=== PATIENT | male | born 1990 | race Two or more races ===

== ENCOUNTER 2020-06-20 18:12 | Emergency (ER) | payer SELFPAY ==
[~2020-06-20] VITALS: Ht 165.1 cm; Wt 68.0 kg
--- NOTE | 2020-06-20 18:20 | NUR ---
[id number], and tanmay, suicidal ideation, "i want to hurt myself" LFA lac using, TANMAY will put him on [id number]. On room air, breathing evenly and unlabored. sitter at bedside for constant monitoring. WIll continue to monitor accordingly.
--- NOTE | 2020-06-20 18:24 | NUR ---
called security for wanding
--- NOTE | 2020-06-20 18:24 | NUR ---
security at bedside for wanding
[2020-06-20] MEDS ORDERED: TDAP [DIPH/PERTUSSIS/TET] 0.5 ML VIAL IM ONE ×2 (18:30→18:31)
[2020-06-20 18:53] LABS: BASOPHILS % (AUTO) 0.6 % (0.0-2.0); EOSINOPHILS % (AUTO) 0.2 % (0.0-6.0); HEMATOCRIT 44 % (39-51); HEMOGLOBIN 15.2 g/dL (13.5-17.5); LYMPHOCYTES # (AUTO) 1.6 /CMM (0.8-4.8); LYMPHOCYTES % (AUTO) 19.5 % (20.0-44.0); MEAN CORPUSCULAR HGB CONC 34 g/dl (31.0-36.0); MEAN CORPUSCULAR VOLUME 89 fL (80-96); MONOCYTES # (AUTO) 0.5 /CMM (0.1-1.30); MONOCYTES % (AUTO) 6.6 % (2.0-12.0); NEUTROPHILS # (AUTO) 6.1 /CMM (1.8-8.9); NEUTROPHILS % (AUTO) 73.1 % (43.0-81.0); PLATELET COUNT (AUTO) 223 /CMM (150-450); RED BLOOD CELL COUNT(AUTO) 4.97 MIL/uL (4.5-6.0); WHITE BLOOD COUNT (AUTO) 8.3 K/uL (4.3-11.0)
[2020-06-20 19:15] LABS: ALBUMIN 3.7 g/dL (3.4-5.0); BILIRUBIN,DIRECT 0.2 mg/dL (0.0-0.2); BILIRUBIN,TOTAL 1.1 mg/dL (0.2-1.0); CALCIUM, SERUM 7.9 mg/dL (8.5-10.1); CREATININE 0.7 mg/dL (0.6-1.3); POTASSIUM 3.6 mmol/L (3.5-5.1); TOTAL PROTEIN, SERUM 7.2 g/dL (6.4-8.2)
--- NOTE | 2020-06-20 19:51 | NUR ---
CALL FROM LAB. RAPID COVID NEGATIVE.
[2020-06-20] MEDS ORDERED: ZIPRASIDONE MESYLATE 20 MG/VIAL VIAL IM ONE ×2 (20:35→21:00)
[2020-06-20] MEDS ORDERED: QUETIAPINE FUMARATE 25 MG TABLET ONE (23:12)
[2020-06-20] MEDS ORDERED: QUETIAPINE FUMARATE 100 MG TABLET PO ONE (23:30)
--- NOTE | 2020-06-21 00:20 | NUR ---
PATIENT IS SLEEPING. EASILY AROUSABLE THROUGH VERBAL STIMULI. PATIENT IS BREATHING EVENLY AND UNLABORED ON ROOM AIR. CONNECTED TO THE MONITOR. SIDE RAILS ARE UP FOR SAFETY. NO BELONGINGS OR POTENTIALLY DANGEROUS OBJECTS IN ROOM. SITTER IS AT BEDSIDE. WILL CONTINUE TO MONITOR PATIENT VERY CLOSELY.
--- NOTE | 2020-06-21 01:50 | NUR ---
PT AWAKE, C/O ANXIETY. AWARE
[2020-06-21] MEDS ORDERED: LORAZEPAM 1 MG TABLET PO ONE (02:00)
[2020-06-21] MEDS ORDERED: LORAZEPAM 1 MG TABLET ONE (02:00)
--- NOTE | 2020-06-21 04:09 | NUR ---
ATTEMPTED TO CONTACT BOX STAMPER SALOMÓN MONTANA FOR EVALUATION. NO ANSWER. LEFT MESSAGE, WILL FOLLOW UP
--- NOTE | 2020-06-21 04:37 | NUR ---
SPOKE WITH SLABBING MACHINE OPERATOR SALOMÓN MONTANA, UNABLE TO COME EVALUATE PATIENT AT THIS TIME
[2020-06-21 05:04] LABS: COLOR,URINE YELLOW (YELLOW)
[2020-06-21 05:05] LABS: BILIRUBIN,URINE NEGATIVE (NEGATIVE); PH,URINE 6.5 (5.0-8.0); PROTEIN,URINE NEGATIVE (NEGATIVE); UGLUCOSE NEGATIVE (NEGATIVE)
[2020-06-21 05:06] LABS: LEUKOCYTE ESTERASE ,URINE NEGATIVE (NEGATIVE); NITRITE, URINE NEGATIVE (NEGATIVE); UROBILINOGEN,URINE 0.2 EU/dL (0.2)
[2020-06-21 05:12] LABS: BACTERIA,URINE None seen /HPF (None Seen); RBC,URINE 0-2 /HPF (0-2); SQUAMOUS EPITHELIAL CELL,UR Few /HPF (None Seen); WBC,URINE 0-2 /HPF (0-3)
--- NOTE | 2020-06-21 08:00 | NUR ---
Pt AAO, appropriate to questions. Conversant. Requesting to speak to psych. Breakfast given ate 100%. provided w/oral care Updated w/plan of care
[2020-06-21 11:24] VITALS: BP 130/78
--- NOTE | 2020-06-21 11:25 | NUR ---
Patient discharged to home in stable condition. Written and verbal after care instructions given. Patient verbalizes understanding of instruction. Picked up by sister Cesilia, in no distress.
--- NOTE | 2020-06-21 11:56 | NUR ---
Project Manager Process Development Consult: SW consult requested by ER staff for a 30 year old male for suicidal ideation. SW met with pt at ER bedside 12 and conducted an assessment at 1035 am. Pt made good eye contact during the assessment. Pt. alert and oriented x4 (time,place, self, and situation). Pt appears to be in an anxious mood. Pt.'s speech is within normal limits. Pt is groomed, and had proper attire. Pt ambulates with steady gait and no DME. Pt currently lives at ([address] [place] [address], ). He currently lives alone. Support system is the sister (Cesilia Walker , ). 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 Pt denies having any symptoms of suicidal ideation during the assessment. Pt report " I only felt like that when I was drunk entering the hospital, " I do not have any of those thoughts anymore". Pt expresses drinking two bottles of wine because the girlfriend broke up recently, which triggered the consumption of alcohol. Pt's preference of alcohol is vodka. Pt has hx psychiatric hospitalization but being hospitalized a long time ago. Pt reports hx of psychotropic medication (Seroquel and Strattera). Pt denies having homicidal ideation. Pt has a plan once being medically discharged. The sister (Cesilia Walker , ) will be receiving the pt after being medically discharged to home. SW did offer resources for addiction and treatment centers. Pt. is receptive to resources. Mental Health resources provided: [facility] [address] [place] [address] ; [facility] [address] [facility] [address], [place] [address] ; [facility] [address] [place] [address] ; [facility] [address] [place], [place] [id number] . Substance Abuse resources provided included: [facility] Substance Abuse Self-Help line (SASH) ; [facility] [address] [facility]. [place]. [place] [id number] ; [facility] [address] [facility] [address] ; [facility] [address] [place] [address] ; [facility] [address] [facility] [address] ; [facility] [address] [facility] [phone] ; [facility] [address] [facility] [phone] ; [facility] Substance Abuse Help line ([facility])-[facility] ; [facility] ; [facility] [place]; [facility] [place]; [facility] [place]; [facility] [place]; [facility] [place]; [facility]; [facility], [facility]. [place]; Alcoholics Anonymous -[facility]; [facility] ; Marijuana Anonymous [facility]; Narcotics Anonymous www.na.org. Plan: SW gave appropriate resources (addiction resources and treatment facilities during the assessment. Project Manager Process Development office will be available as needed.
== END 2020-06-21 11:24 | disposition home or self-care (01) ==
LOC: EDBD 18:19 → ER 18:19
DX: R45.851 Suicidal ideations (principal); F25.0 Schizoaffective disorder, bipolar type; S51.812A Laceration without foreign body of left forearm, initial encounter; X78.8XXA Intentional self-harm by other sharp object, initial encounter; Y92.89 Other specified places as the place of occurrence of the external cause; Z20.822 Contact with and (suspected) exposure to COVID-19; F10.129 Alcohol abuse with intoxication, unspecified; Y90.8 Blood alcohol level of 240 mg/100 ml or more
CPT/HCPCS: 12002; 36415 ×2; 80048; 80076; 80299; 80307; 80320 ×2; 81001; 85025; 87426; 90471; 90715; 96372; 99285; C9803; J3486; G0480